=== PATIENT | female | born 1960 | race Asian ===

== ENCOUNTER → 2016-12-06 | Outpatient (CLI) | payer OTHER ==
--- NOTE | 2016-12-06 16:15 | RADRPT ---
PROCEDURE: Whole body bone scan study CLINICAL INDICATION: 56 -year-old patient with breast cancer, for evaluation for skeletal metastas es. TECHNIQUE: Following the intravenous injection of 23.2 mCi of Tc-99m MDP, whole body anterior and posterior planar images were obtained along with spot views of the head, neck and chest. COMPARISON: The patient does not have any prior relevant imaging studies. FINDINGS: Areas of increased activity are seen in the lower lumbar spine, at approximately L3-S1 levels, which favor degenerative disease. No other definite abnormal areas of increased activity or asymmetries are visualized in the study an d distribution of radionuclide is homogeneous in the skull, spine, rib cages, sternum, pelvis and vi sualized portions of the upper and lower extremities. Of incidental note, there is no evidence of mass abnormalities of the kidneys or obstructive uropath y. IMPRESSION: 1. No definite scintigraphic evidence to suggest the presence of skeletal metastases. 2. Likely degenerative changes of the lower lumbar spine. RPTAT: HH .Elizabeth Dick MD, MD Date Time Electronically viewed and signed by .Elizabeth Dick MD, on 12/06/2016 16:14 .L/
== END | disposition home or self-care (01) ==
LOC: NUC 08:47
PROVIDERS: ATTEND Internal Medicine Hematology & Oncology
DX: C50.412 Malignant neoplasm of upper-outer quadrant of left female breast (principal); C77.3 Secondary and unspecified malignant neoplasm of axilla and upper limb lymph nodes; M85.89 Other specified disorders of bone density and structure, multiple sites; M54.5 Low back pain
CPT/HCPCS: 78306; A9503